=== PATIENT | female | born 1995 | race American Indian/Alaskan Native ===

== ENCOUNTER 2018-12-30 12:01 | Emergency (ER) | payer OTHER, MEDICAID ==
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
--- NOTE | 2018-12-30 14:50 | XRay Report ---
THORACIC SPINE, 2 VIEWS: HISTORY: back pain. Normal bone mineralization. No evidence for compression deformity, malalignment, or bone lesion. The posterior ribs are intact. The paraspinal soft tissues are within normal limits. IMPRESSION: Thoracic spine within normal limits.
--- NOTE | 2018-12-30 14:51 | XRay Report ---
CERVICAL SPINE, 3 views: History: Neck pain. Findings: The vertebral bodies, disk spaces, posterior elements and prevertebral soft tissues are unremarkable. The dens is intact. No acute fracture or malalignment is identified. Impression: 1. No evidence for acute injury to the cervical spine.
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
[2018-12-30 18:11] VITALS: BP 136/80
== END 2018-12-30 18:11 | disposition home or self-care (01) ==
LOC: ED 12:01
DX: M54.2 Cervicalgia (principal); M54.6 Pain in thoracic spine; M79.10 Myalgia, unspecified site; V49.59XA Passenger injured in collision with other motor vehicles in traffic accident, initial encounter; Y93.89 Activity, other specified; Y92.488 Other paved roadways as the place of occurrence of the external cause; Y99.8 Other external cause status
CPT/HCPCS: 72040; 72070; 99283

== ENCOUNTER 2019-08-04 12:50 | Emergency (ER) | payer MEDICAID, OTHER ==
[2019-08-04 13:36] VITALS: BP 111/70
--- NOTE | 2019-08-04 13:39 | Emergency Department Report ---
Blank Doc - Documentation Documentation: 23-year-old female that presents with left shoulder pain with radiation to chest and back. Denies any SOB. Denies any injuries to shoulder. This initial assessment/diagnostic orders/clinical plan/treatment(s) is/are subject to change based on patient's health status, clinical progression and re- assessment by fellow clinical providers in the ED. Further treatment and workup at subsequent clinical providers discretion. Patient/guardians urged not to elope from the ED as their condition may be serious if not clinically assessed and managed. Initial orders include: 1- Patient sent to [facility] for further evaluation and treatment 2- EKG 3- CXR
--- NOTE | 2019-08-04 15:10 | XRay Report ---
CHEST PA AND LATERAL VIEWS INDICATION: Chest pain. COMPARISON: None. FINDINGS: Support devices: None. Heart: Within normal limits. Lungs/Pleura: No acute pulmonary or pleural findings. IMPRESSION: 1. No significant abnormality. Signer Name: Benoit Davis MD Signed: 08/04/2019 3:06 PM Workstation Name: [id number]
== END 2019-08-04 15:30 | disposition left against medical advice (07) ==
LOC: ED 12:50
DX: R07.89 Other chest pain (principal); Z53.21 Procedure and treatment not carried out due to patient leaving prior to being seen by health care provider
CPT/HCPCS: 71046; 93005; 93010